=== PATIENT | female | born 1995 | race African-American/Black ===

== ENCOUNTER 2019-03-25 21:36 | Emergency (ER) | payer OTHER ==
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
[2019-03-25 21:46] VITALS: BMI 22.6
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
[2019-03-25 23:59] VITALS: BP 97/54; PULSE 84; TEMP 99.4
[2019-03-26] MEDS ORDERED: ACETAMINOPHEN 325 MG TABLET (FP) PO ONE (00:10)
[2019-03-26] MEDS ORDERED: ACETAMINOPHEN 325 MG TABLET (FP) ONE (00:12)
== END 2019-03-26 00:15 | disposition home or self-care (01) ==
LOC: JER 21:36
DX: F41.1 Generalized anxiety disorder (principal); Y04.2XXA Assault by strike against or bumped into by another person, initial encounter; Y93.89 Activity, other specified; Y92.038 Other place in apartment as the place of occurrence of the external cause; Y99.8 Other external cause status; Y07.03 Male partner, perpetrator of maltreatment and neglect; Z98.890 Other specified postprocedural states
CPT/HCPCS: 99281-25